=== PATIENT | male | born 1940 | race Caucasian/White ===

== ENCOUNTER → 2016-11-08 | Outpatient (CLI) | payer OTHER, BC ==
[~2016-11-08] MED LIST: ACET325T96 PO; ALEN40TA2 PO; CHOL100027 PO; METO-479 PO; MULTTAB58 PO; RAPAFLO PO
--- NOTE | 2016-11-08 15:35 | DIAGNOSTIC IMAGING REPORT ---
KUB HISTORY: N20.0 [id number] COMPARISON: KUB 11/14/2015. FINDINGS: The bowel gas pattern is unremarkable. There are no dilated loops of small bowel to suggest an obstruction. There is a 4 mm stone within the lower pole the right kidney and a 3 mm stone within the lower pole the left kidney. No ureteral calculi. Calcifications in the deep pelvis likely represent phleboliths. No pneumoperitoneum or pneumatosis. There is a right hip prosthesis. IMPRESSION: Stable bilateral nephrolithiasis. No ureteral calculi identified. Electronically signed by: Jim Sanchez M.D. 11/08/2016 3:33 PM Dictated Date/Time: 11/08/2016 3:31 PM
--- NOTE | 2016-11-23 11:40 | CODING QUERY MEDICAL NECESSITY ---
CQSUPPORTING DIAGNOSIS NEEDED A supporting diagnosis is required for the test/procedure performed on this patient in order for us to be reimbursed by the patient's insurance. Please provide a supporting diagnosis for the following test/procedure listed below next to the test name along with your signature. *If there is no additional diagnosis for this patient that would support the following test/procedure please document that below next to the test/procedure. Test(s)/Procedure(s) that require a supporting diagnosis: DOS 11/08/16 PROSTATE SPECIFIC (PSA) Provider Signature: Date: Thank you [facility] Once completed, please kindly fax back to [phone] For questions please call [phone]
== END | disposition home or self-care (01) ==
LOC: C.RAD 14:58
PROVIDERS: ATTEND Urology
DX: N20.0 Calculus of kidney (principal); R97.20 Elevated prostate specific antigen [PSA]

== ENCOUNTER → 2017-11-02 | Outpatient (CLI) | payer OTHER, BC ==
[~2017-11-02] MED LIST changes: +ACET-1693 PO; -ACET325T96 PO
--- NOTE | 2017-11-02 14:37 | DIAGNOSTIC IMAGING REPORT ---
KUB CLINICAL HISTORY: Nephrolithiasis. FINDINGS: 2 AP supine abdominal radiographs are compared to study dated 11/08/2016 and correlated with abdominal CT dated 05/31/2012. There is a nonobstructed abdominal bowel gas pattern. Moderate colonic fecal retention is observed. A 5 mm nonobstructing calculi projects over the right kidney and a 4 mm nonobstructing calculus projects over the left kidney. No calcifications are seen along the course of the ureters. Pelvic phleboliths are observed. The skeletal structures are osteopenic. Moderate lumbosacral spondylosis is identified. A right hip arthroplasty is in place. IMPRESSION: 1. Small bilateral nonobstructing renal calculi are similar to previous. 2. There is no radiographic evidence of ureterolithiasis. Electronically signed by: Ottoniel Worrell M.D. 11/02/2017 2:36 PM Dictated Date/Time: 11/02/2017 2:34 PM
[2017-11-02 15:00] LABS: BLOOD UREA NITROGEN 29 mg/dl (7-18); CALCIUM 8.8 mg/dl (8.5-10.1); CARBON DIOXIDE 25 mmol/L (21-32); CREATININE 1.42 mg/dl (0.60-1.40); GLUCOSE 90 mg/dl (70-99); SODIUM 137 mmol/L (136-145)
== END | disposition home or self-care (01) ==
LOC: C.RAD 13:41
PROVIDERS: ATTEND Urology
DX: R39.16 Straining to void (principal)